=== PATIENT | male | born 1970 | race Caucasian/White ===

== ENCOUNTER 2022-04-26 11:09 | Inpatient (IN) ==
[2022-04-26 12:05] LABS: ABS Lymphocytes 0.7 10^3/ul (1.0-4.8); ABS Monocytes 0.6 10^3/ul (0-0.8); ABS Neutrophils 6.5 10^3/ul (1.5-7.7); Eosinophil % 0.3 %; Hematocrit 53 % (42-52); Hemoglobin 17.4 g/dL (14.0-18.0); Lymphocyte % 9.4 %; Mean Corpuscular HGB Conc 33 g/dL (31-36); Mean Corpuscular Hemoglobin 30 pg (27-31); Mean Corpuscular Volume 91 fL (80-94); Mean Platelet Volume 7.9 fL (7.4-10.4); Nucleated Red Blood Cells % 0.1; Platelet Count 296 10^3/uL (150-450); Red Blood Count 5.88 10^6 /uL (4.18-5.48); Red Cell Distribution Width 13 % (10-15); White Blood Count 7.9 10^3/uL (3.5-10.8)
[2022-04-26] MEDS ORDERED: Butalb/Acetamin/Caff TAB 325-50-40MG PO ONE (12:10)
[2022-04-26 13:18] LABS: ALT 19 U/L (7-52); Acetaminophen < 15 mcg/mL; Albumin 4.8 g/dL (3.2-5.2); Albumin/Globulin Ratio 1.7 (1-3); Alcohol, S < 13 mg/dL (<13); Alkaline Phosphatase 75 U/L (35-149); Blood Urea Nitrogen 13 mg/dL (6-24); CO2 Carbon Dioxide 22 mmol/L (22-32); Calcium 10.1 mg/dL (8.6-10.3); Chloride 108 mmol/L (101-111); Globulin 2.9 g/dL (2-4); Glucose 149 mg/dL (70-100); Salicylate < 2.50 mg/dL (<30); Sodium 141 mmol/L (135-145); Total Protein 7.7 g/dL (6.4-8.9); eGFR CKD-EPI 97.6 (>60)
[2022-04-26] MEDS ORDERED: LORazepam 2 mg VIAL 1 ml ONE (13:28)
[2022-04-26 13:30] LABS: Anion Gap 11 mmol/L (2-11); TSH Ultra Thyroid Stim Horm 0.69 mcIU/mL (0.34-5.60)
[2022-04-26] MEDS ORDERED: Haloperidol 5 mg/ml SDV IV/IM 5 MG/ML AMP ONE (13:30)
[2022-04-26] MEDS ORDERED: Midazolam 2 mg/2 ml VIAL 1 mg/ml 2 ml VIAL (2 mg) ONE (13:39)
[2022-04-26] MEDS ORDERED: Al Hydrox/Mg Hydrox/Simet LIQ 30 ML UDC PO PRN (15:30)
[2022-04-26] MEDS ORDERED: Butalb/Acetamin/Caff TAB 325-50-40MG PO PRN (15:33)
[2022-04-28 08:49] LABS: HDL Cholesterol 43.4 mg/dL
[2022-04-28 09:46] VITALS: BP 142/95
== END 2022-04-28 12:25 | disposition home or self-care (01) | DRG 885 ==
LOC: ED 11:09 → EDHOLD 15:30 → BSU 17:44
PROVIDERS: ADMIT Psychiatry & Neurology Psychiatry; ATTEND Psychiatry & Neurology Psychiatry

== ENCOUNTER 2022-08-04 05:33 | Observation (INO) ==
[2022-08-04] MEDS ORDERED: Chlorhexidine MOUTHWASH 0.12% 15 ML UDC ONE (05:44)
[2022-08-04] MEDS ORDERED: ceFAZolin 2 GM PREMIX 2 GM/50 ML BAG ONE (05:58)
[2022-08-04] MEDS ORDERED: Buffered Lidocaine 1% SYRIN 1 ml INTRADERM ONE (06:00)
[2022-08-04] MEDS ORDERED: Lactated Ringers 1000 ml BAG 1,000 ML IV SCH ×2 (06:00→10:00)
[2022-08-04] MEDS ORDERED: Rocuronium 50 mg VIAL 10 mg/ml 5 ml VIAL (50 mg) ONE (06:46)
[2022-08-04] MEDS ORDERED: fentaNYL 250 mcg/5 ml 50 MCG/ML 5 ml VIAL (250 MCG) ONE (06:46)
[2022-08-04] MEDS ORDERED: Midazolam 2 mg/2 ml VIAL 1 mg/ml 2 ml VIAL (2 mg) ONE (06:46)
[2022-08-04] MEDS ORDERED: Acetaminophen IV 1 GM/100ML 1,000 MG/100 ML BAG IV ONE (06:47)
[2022-08-04] MEDS ORDERED: Sevoflurane BOTTLE ONE (06:47)
[2022-08-04] MEDS ORDERED: Dexamethasone IV 4 MG/ML VIAL 1 ml VIAL ONE (06:47)
[2022-08-04] MEDS ORDERED: Phenylephrine IV 10 MG/ML 1 ml VIAL ONE (06:47)
[2022-08-04] MEDS ORDERED: Lidocaine 2% PF 5 ML VIAL ONE (06:47)
[2022-08-04] MEDS ORDERED: Sterile Water for Inj 10 ML ONE (06:47)
[2022-08-04] MEDS ORDERED: Ondansetron 4 mg VIAL 2 MG/ML 2 ml VIAL ONE (06:47)
[2022-08-04] MEDS ORDERED: Gelfoam Sponge SIZE 100 SPONGE ONE (06:54)
[2022-08-04] MEDS ORDERED: Thrombin 5,000 UNITS 1 APPLIC KIT - topical use - TOPICAL ONE (06:54)
[2022-08-04] MEDS ORDERED: Lidocaine 2% w EPI 1:100,000 20 ML MDV VIAL ONE (06:54)
[2022-08-04] MEDS ORDERED: ceFAZolin VIAL VIAL ONE (07:46)
[2022-08-04] MEDS ORDERED: Ondansetron 4 mg VIAL 2 MG/ML 2 ml VIAL IV PRN ×2 (08:06→09:35)
[2022-08-04] MEDS ORDERED: Naloxone 0.4 mg VIAL 0.4 mg/ml 1 ml VIAL IV PRN (08:06)
[2022-08-04] MEDS ORDERED: Senna TAB 8.6 mg TAB PO PRN (09:46)
[2022-08-04] MEDS ORDERED: Morphine 2 MG/ML SYRINGE IV PRN (09:46)
[2022-08-04] MEDS ORDERED: fentaNYL 100 mcg/2 ml 50 MCG/ML VIAL ONE (09:51)
[2022-08-04] MEDS: fentaNYL 100 mcg/2 ml 50 MCG/ML VIAL IV PRN ×2 (09:54→09:59)
[2022-08-04] MEDS: HYDROcodone/ACETAMIN 5/325 mg TAB PO PRN (20:08)
[2022-08-05] MEDS: HYDROcodone/ACETAMIN 5/325 mg TAB PO PRN (00:30)
[2022-08-05 08:07] VITALS: BP 162/88
== END 2022-08-05 08:46 | disposition home or self-care (01) ==
LOC: INTOOBSV 05:33 → AA 05:33 → SSU 09:35
PROVIDERS: ADMIT Neurological Surgery; ATTEND Neurological Surgery